=== PATIENT | female | born 1995 | race African-American/Black ===

== ENCOUNTER 2021-04-26 10:31 | Day surgery (SDC) | payer BC ==
[~2021-04-26] VITALS: Ht 160 cm; Wt 55.6 kg
[2021-04-26 11:52] VITALS: BP 107/78; PULSE 96; TEMP 98.4
[2021-04-26 13:05] VITALS: BP 114/78; PULSE 113; TEMP 97
[2021-04-26 13:20] VITALS: BP 114/78; PULSE 108; TEMP 98.1
[2021-04-26 13:35] VITALS: BP 111/73; PULSE 99; TEMP 97.9
[2021-04-26 13:50] VITALS: BP 109/69; PULSE 83
== END 2021-04-26 14:57 | disposition home or self-care (01) ==
LOC: SDCO 10:31
DX: K29.50 Unspecified chronic gastritis without bleeding (principal); K21.00 Gastro-esophageal reflux disease with esophagitis, without bleeding; R63.4 Abnormal weight loss; Z79.899 Other long term (current) drug therapy
CPT/HCPCS: J2704; J7120

== ENCOUNTER 2021-06-24 19:04 | Emergency (ER) | payer BC ==
[~2021-06-24] VITALS: Ht 160 cm; Wt 52.7 kg
[2021-06-24 19:11] VITALS: TEMP 98.3
[2021-06-24 19:53] LABS: BASO # 0.1 K/mm3 (0.0-0.2); BASO % 0.6 % (0.0-2.0); EOS # 0.2 K/mm3 (0.0-0.7); EOS % 1.8 % (0.0-4.0); GRAN # 4.9 K/mm3 (1.4-6.5); GRAN % 57.6 % (42.2-75.2); HEMOGLOBIN 12.2 g/dl (12.5-16.0); LYMPH # 2.8 K/mm3 (1.2-3.4); LYMPH % 32.7 % (20.0-51.0); MEAN CELL VOLUME 91 fl (80.0-100.0); MEAN CORPUSCULAR HEMOGLOBIN 30 pg (27-31); MEAN CORPUSCULAR HGB CONC 33 g/dl (33.0-37.0); MEAN PLATELET VOLUME 9.8 fl (7.4-10.4); MONO # 0.6 K/mm3 (0.1-0.6); MONO % 7.1 % (1.7-9.3); PLATELET COUNT 303 K/mm3 (130-400); RED BLOOD COUNT 4.01 M/mm3 (4.10-5.30); REDCELL DISTRIBUTION WIDTH-CV 11.9 % (11.5-14.5)
[2021-06-24 19:56] LABS: HEMATOCRIT 36.6 % (37.0-47.0)
[2021-06-24 20:04] LABS: ALANINE AMINOTRANSFERASE 9 U/L (0-55); ALKALINE PHOSPHATASE 62 U/L (40-150); ANION GAP 9 mmol/L (7-16); AST,SGOT 17 U/L (5-34); BILIRUBIN,TOTAL 0.3 mg/dL (0.2-1.2); BLOOD UREA NITROGEN 9 mg/dL (7-19); CALCIUM 8.9 mg/dL (8.4-10.2); CARBON DIOXIDE 22 mmol/L (22-29); CHLORIDE 107 mmol/L (98-107); CREATININE, serum 1.01 mg/dL (0.57-1.11); GLUCOSE 90 mg/dL (70-99); MAGNESIUM 1.9 mg/dL (1.6-2.6); PHOSPHOROUS 3.5 mg/dL (2.3-4.7); POTASSIUM 4.1 mmol/L (3.5-4.5); SODIUM 138 mmol/L (136-145); TOTAL PROTEIN 7.1 gm/dL (6.2-8.1)
[2021-06-24 20:14] LABS: TROPONIN-I < 0.010 ng/mL (0.00-0.033)
[2021-06-24 20:44] VITALS: BP 151/98; PULSE 80
== END 2021-06-24 20:44 | disposition home or self-care (01) ==
LOC: COL.ER 19:04
PROVIDERS: Emergency Medicine
DX: R42 Dizziness and giddiness (principal); R10.13 Epigastric pain; G89.29 Other chronic pain
CPT/HCPCS: J2405; J7030

== ENCOUNTER → 2021-07-24 | Outpatient (CLI) | payer BC | LOC: COL.RAD 06:26 | DX: K21.9 Gastro-esophageal reflux disease without esophagitis (principal); E44.1 Mild protein-calorie malnutrition; K59.00 Constipation, unspecified; R63.4 Abnormal weight loss | CPT/HCPCS: A9537; J2805 ==